=== PATIENT | male | born 2000 | race Caucasian/White ===

== ENCOUNTER 2019-09-18 15:15 | Emergency (ER) | payer SELFPAY ==
[2019-09-18] MEDS ORDERED: IBUPROFEN 600 MG TABLET (FP) PO ONE (15:22)
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
[2019-09-18 15:31] VITALS: BMI 22.0
[2019-09-18] MEDS ORDERED: SODIUM CHLORIDE 0.9% 500 ML INFUS.BAG IV ONE (16:03)
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
[2019-09-18] MEDS ORDERED: IBUPROFEN 400 MG TABLET (FP) PO ONE (16:15)
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
[2019-09-18] MEDS ORDERED: LIDOCAINE 5% TOPICAL PATCH TP ONE (17:00)
[2019-09-18] MEDS ORDERED: LIDOCAINE 5% TOPICAL PATCH ONE (17:20)
[2019-09-18 17:31] VITALS: BP 114/68; PULSE 84; TEMP 98.3
[2019-09-18] MEDS ORDERED: LIDOCAINE PATCH REMOVAL MC SCH (22:00)
--- NOTE | 2019-09-19 15:12 | EKG ---
Test Reason : Blood Pressure : / mmHG Vent. Rate : 068 BPM Atrial Rate : 068 BPM P-R Int : 142 ms QRS Dur : 082 ms QT Int : 354 ms P-R-T Axes : 074 090 066 degrees QTc Int : 376 ms NORMAL SINUS RHYTHM WITH SINUS ARRHYTHMIA RIGHTWARD AXIS BORDERLINE ECG WHEN COMPARED WITH ECG OF 1999 13:41, PREVIOUS ECG IS PRESENT Confirmed by JACK SANTOS MD ([id number]) on 09/19/2019 3:11:50 PM Referred By: Confirmed By:JACK SANTOS MD
== END 2019-09-18 17:56 | disposition home or self-care (01) ==
LOC: JER 15:15
PROC: 3E0337Z Introduction of Electrolytic and Water Balance Substance into Peripheral Vein, Percutaneous Approach (ICD-10-PCS; principal; 2019-09-18)
DX: S20.211A Contusion of right front wall of thorax, initial encounter (principal); R07.81 Pleurodynia; F17.210 Nicotine dependence, cigarettes, uncomplicated; Y04.2XXA Assault by strike against or bumped into by another person, initial encounter; Y93.89 Activity, other specified; Y92.89 Other specified places as the place of occurrence of the external cause
CPT/HCPCS: 71101-TC-RT-FY; 93005; 93010; 99282-25